=== PATIENT | female | born 1965 | race Caucasian/White ===

== ENCOUNTER 2016-12-12 19:03 | Emergency (ER) | payer BC | END 2016-12-12 20:35 | disposition home or self-care (01) | LOC: ER1 19:03 | DX: J06.9 Acute upper respiratory infection, unspecified (principal); B34.9 Viral infection, unspecified; Z79.899 Other long term (current) drug therapy | CPT/HCPCS: 87081; 87880; 93005; 99283 ==

== ENCOUNTER → 2022-03-10 | Day surgery (SDC) | payer OTHER ==
[~2022-03-10] MED LIST: DAILY VALUE1 EACH PO; ESOMEPRAZOLE MA20 MG PO; LEVOTHYROXINE75 MCG PO; OMNICEF 300 MG300 MG PO; PROVENTIL HFA6.7 GM INH; VITAMIN D3125 MC1 PO; VOLTAREN ARTHRI20 GM TP
== END | disposition home or self-care (01) ==
LOC: OR 06:43
DX: Z12.11 Encounter for screening for malignant neoplasm of colon (principal); Z80.0 Family history of malignant neoplasm of digestive organs; E03.9 Hypothyroidism, unspecified; K21.9 Gastro-esophageal reflux disease without esophagitis; Z79.899 Other long term (current) drug therapy
CPT/HCPCS: J2704; J7030